=== PATIENT | female | born 1945 | race Caucasian/White ===

== ENCOUNTER 2016-04-30 09:38 | Emergency (ER) | payer MEDICARE, BC | END 2016-04-30 11:20 | disposition home or self-care (01) | LOC: ED 09:38 | DX: R44.2 Other hallucinations (principal); E78.5 Hyperlipidemia, unspecified; I10 Essential (primary) hypertension; I25.2 Old myocardial infarction; Z87.891 Personal history of nicotine dependence; F41.9 Anxiety disorder, unspecified; F32.9 Major depressive disorder, single episode, unspecified ==